=== PATIENT | male | born 1950 ===

== ENCOUNTER 2023-12-26 14:17 | Outpatient (CLI) | payer OTHER, SELFPAY ==
--- NOTE | ~2023-12-26 | XR_ITS ---
EXAMINATION: XR chest 2V DATE: 12/26/2023 14:59 INDICATION: 2 weeks of cough TECHNIQUE: frontal and lateral views of the chest were obtained. COMPARISON: None FINDINGS: Interstitial and airspace opacities in the posterior lower lung zones. No pleural effusion or pneumot horax. Heart size is normal. Median sternotomy wires and mediastinal surgical clips are seen, likely from prior coronary artery bypass grafting. Poorly visualized likely Amplatz type anteroseptal occlus ion device projecting over the right posterior inferior heart. IMPRESSION: 1. Interstitial and airspace opacities in the bilateral dependent lower lungs which could represent m ild pulmonary edema, atelectasis, pneumonia or some combination thereof. Reviewed, dictated and finalized at location A. [facility] IMPRESSION: 1. Interstitial and airspace opacities in the bilateral dependent lower lungs w hich could represent mild pulmonary edema, atelectasis, pneumonia or some combi nation thereof.
--- NOTE | ~2023-12-26 | MR_ITS ---
EXAMINATION: MR cervical spine wo con DATE: 12/26/2023 14:50 INDICATION: Other spondylosis. Chronic neck pain. Right arm pain. TECHNIQUE: Magnetic resonance imaging (MRI) of the cervical spine was performed without intravenous c ontrast. COMPARISON: None FINDINGS: There is 7 degrees levocurvature of cervical spine. There is 3 mm retrolisthesis of C4 on C 5 and 2 mm retrolisthesis of C5 on C6. Vertebral body heights are normal. There is mildly decreased d isc height at C3-C4, moderately decreased disc height at C4-C5 and C5-C6, and severely decreased disc height at C6-C7. The spinal cord signal intensity is normal. The following disc levels are specifica lly discussed: C2-C3: The disc does not extend beyond the endplate margin. There is no uncovertebral joint osteoarth ritis. There is severe bilateral facet joint osteoarthritis. There is mild bilateral neural foraminal stenosis. There is no central canal stenosis. C3-C4: The disc is bulging. There is severe bilateral uncovertebral joint osteoarthritis. There is mo derate right and severe left facet joint osteoarthritis. There is mild left neural foraminal stenosis . There is mild central canal stenosis. C4-C5: The disc is bulging. There is severe bilateral uncovertebral joint osteoarthritis. There is mi ld bilateral facet joint osteoarthritis. There is severe bilateral neural foraminal stenosis. There i s mild bilateral central canal stenosis. C5-C6: The disc is bulging. There is severe bilateral uncovertebral joint osteoarthritis. There is mo derate right and mild left facet joint osteoarthritis. There is severe bilateral neural foraminal ashley nosis. There is mild central canal stenosis. C6-C7: The disc is bulging. There is severe bilateral uncovertebral joint osteoarthritis. There is se kevin bilateral facet joint osteoarthritis. There is mild bilateral neural foraminal stenosis. There i s mild central canal stenosis. C7-T1: The disc does not extend beyond the endplate margin. There is no uncovertebral joint osteoarth ritis. There is severe left facet joint osteoarthritis. There is ankylosis of right facet joint with mild hypertrophy. There is mild right neural foraminal stenosis. There is no central canal stenosis. IMPRESSION: 1. Severe cervical spondylosis. Reviewed, dictated and finalized at location E. [facility]
== END 2023-12-26 14:18 ==
PROVIDERS: PCP Family Medicine; Visit Provider Family Medicine
DX: M47.12 Other spondylosis with myelopathy, cervical region (principal)
CPT/HCPCS: 71046; 72141

== ENCOUNTER 2024-01-01 10:42 | Outpatient (CLI) | payer OTHER, SELFPAY ==
--- NOTE | ~2024-01-01 | CT_ITS ---
EXAMINATION: CT diagnostic chest w con DATE: 01/01/2024 11:09 INDICATION: Pneumonia, unspecified organism TECHNIQUE: Computed tomography (CT) of the chest was performed without intravenous contrast. Addition al 3D reconstructions utilizing coronal maximum intensity projection (MIP) were performed. Automated exposure control and iterative reconstruction technique were employed. The dose-length product was 42 0.10 mGy-cm. COMPARISON: None FINDINGS: Peripheral and lower lung predominant irregular septal line thickening, groundglass opacities and sub pleural honeycombing consistent with usual interstitial pneumonia pattern (UIP) pattern chronic inter stitial lung disease. There are associated mild bronchiectatic changes in the bilateral lower lobes. There are multiple small patchy groundglass opacities more centrally within the anterior segment of t he right upper lobe which are more suspicious for superimposed pneumonia. No pleural effusion. Heart size is normal. Atherosclerotic coronary artery calcifications and change of prior median sternotomy and coronary artery bypass grafting. No pericardial effusion. Thoracic aorta is normal in caliber wit h no dissection. No pathologically enlarged thoracic lymphadenopathy. Visualized upper abdomen is unr emarkable. Chronic L1 compression fracture with prior vertebroplasty. Mild thoracic and moderate lowe r cervical spondylosis. IMPRESSION: 1. Mild patchy groundglass opacities in the intersegment of the right upper lobe suspicious for pneum onia. 2. Mild central bronchiectasis in bilateral lower lobes with associated extensive bilateral periphera l and lower lung predominant lung disease with honeycombing most consistent with usual interstitial p neumonia (UIP) pattern chronic interstitial lung disease. Reviewed, dictated and finalized at location B. IMPRESSION: 1. Mild patchy groundglass opacities in the intersegment of the right upper lob e suspicious for pneumonia. 2. Mild central bronchiectasis in bilateral lower lobes with associated extensi ve bilateral peripheral and lower lung predominant lung disease with honeycombi ng most consistent with usual interstitial pneumonia (UIP) pattern chronic inte rstitial lung disease.
[2024-01-01 11:00] LABS: Estimated Glomerular Filt Rate 50
== END 2024-01-01 10:43 ==
LOC: MICIMG 10:43
PROVIDERS: PCP Family Medicine; Visit Provider Family Medicine
DX: J18.9 Pneumonia, unspecified organism (principal); R91.8 Other nonspecific abnormal finding of lung field
CPT/HCPCS: 36415; 71260; Q9967

== ENCOUNTER 2024-02-18 09:51 | Outpatient (CLI) | payer OTHER, SELFPAY ==
--- NOTE | ~2024-02-18 | MR_ITS ---
EXAMINATION: MR thoracic spine wo con DATE: 02/18/2024 10:45 INDICATION: Mid back pain. TECHNIQUE: Magnetic resonance imaging (MRI) of the thoracic spine was performed without intravenous c ontrast. Sagittal localizer T1-weighted FSE of the cervical spine was obtained. Thoracic spine sequen salvador included sagittal T2-weighted FSE, sagittal T1-weighted FSE, sagittal T2-weighted FS FSE, and axi al T2-weighted FSE. COMPARISON: Chest CT 01/01/2024 FINDINGS: There is lumbar dextrocurvature and kyphosis. There is a chronic compression fracture of T3 with 1/5 loss of height. There is a burst fracture of T8 inferior endplate with 2/5 loss of height, edema-like marrow signal intensity, and retropulsion of bone 2 mm into central spinal canal. There is a chronic compression fracture of L1 with changes of vertebroplasty. There is mildly decreased disc height at T3-T4, T8-T9, and T10-T11. At T5-T6, there is a central protrusion with mild central canal stenosis. At T8-T9, there is a central protrusion with mild central canal stenosis. There is multilev el mild to moderate facet joint osteoarthritis. On the right, there is mild neural foraminal stenosis at T8-T9. On the left, there is mild neural foraminal stenosis at T8-T9. The spinal cord signal inte nsity is normal. IMPRESSION: 1. Acute/subacute burst fracture of T8, new from 01/01/2024. 2. Mild thoracic spondylosis. Reviewed, dictated and finalized at location A.
== END 2024-02-18 09:52 ==
LOC: MICIMG 09:53
PROVIDERS: PCP Family Medicine; Visit Provider Family Medicine
DX: M47.894 Other spondylosis, thoracic region (principal); S22.061A Stable burst fracture of T7-T8 vertebra, initial encounter for closed fracture; X58.XXXA Exposure to other specified factors, initial encounter
CPT/HCPCS: 72146